=== PATIENT | female | born 1980 | race Caucasian/White ===

== ENCOUNTER 2016-07-06 23:19 | Emergency (ER) | payer BC ==
[2013-09-01 15:06] VITALS: BMI 29.2
[~2016-07-06 23:19] MED LIST: FERREX 150 PLUS1 CAP PO; IBUPROFEN600 MG PO; PERCOCET 5-3251 TAB PO; PRENATAL COMPLE1 TAB PO
== END 2016-07-07 00:45 | disposition home or self-care (01) ==
LOC: D.ER 23:19
DX: G43.909 Migraine, unspecified, not intractable, without status migrainosus (principal)

== ENCOUNTER 2016-09-28 13:27 | Emergency (ER) | payer MEDICAID ==
[2013-09-01 15:06] VITALS: BMI 29.2
== END 2016-09-28 14:29 | disposition home or self-care (01) ==
LOC: D.ER 13:27
DX: M54.5 Low back pain (principal); S39.012A Strain of muscle, fascia and tendon of lower back, initial encounter; X58.XXXA Exposure to other specified factors, initial encounter; Y93.89 Activity, other specified; Y92.89 Other specified places as the place of occurrence of the external cause

== ENCOUNTER 2017-05-26 08:01 | Emergency (ER) | payer MEDICAID ==
[2013-09-01 15:06] VITALS: BMI 29.2
== END 2017-05-26 10:50 | disposition home or self-care (01) ==
LOC: D.ER 08:01
DX: H92.03 Otalgia, bilateral (principal); H60.93 Unspecified otitis externa, bilateral; H66.93 Otitis media, unspecified, bilateral